=== PATIENT | male | born 2000 | race Caucasian/White ===

== ENCOUNTER 2018-05-19 21:34 | Emergency (ER) | payer OTHER ==
[2018-05-19] MEDS: DIPHENHYDRAMINE 50 MG CAP PO (22:31)
[2018-05-19] MEDS: DEXAMETHASONE 4 MG TAB PO (22:35)
== END 2018-05-19 23:20 | disposition home or self-care (01) ==
LOC: E/R 21:34
DX: R21 Rash and other nonspecific skin eruption (principal)
CPT/HCPCS: 99283; Z7502